=== PATIENT | male | born 1950 | race Caucasian/White ===

== ENCOUNTER 2018-06-29 07:04 | Day surgery (SDC) | payer OTHER ==
[~2018-06-29] VITALS: Ht 172.7 cm; Wt 67.2 kg
[2018-06-29 07:58] VITALS: Ht 172.7 cm; Wt 67.2 kg
[2018-06-29] MEDS ORDERED: HYDR-3027 PO (08:09)
[2018-06-29] MEDS ORDERED: LATA2.5D2 LEFT EYE (08:09)
[2018-06-29] MEDS ORDERED: BACL10TA PO (08:09)
[2018-06-29] MEDS ORDERED: DICL75TA2 PO (08:09)
[2018-06-29] MEDS ORDERED: ALBU2TAB5 PO (08:09)
[2018-06-29] MEDS ORDERED: LEVO25TA50 PO (08:09)
[2018-06-29] MEDS ORDERED: TML25OP5 BOTH EYES (08:09)
[2018-06-29 09:40] VITALS: BP 160/73; PULSE 51; RESP 20
--- NOTE | 2018-06-29 09:40 | HPN ---
Date/Time of Note Date/Time of Note DATE: 06/29/18 TIME: 09:40 Interval H&P Admission Note Pt. seen H&P reviewed: No system changes MINNIE ERICKSON Jun 29, 2018 09:40
[2018-06-29 09:45] VITALS: BP 139/71; PULSE 50; RESP 20
[2018-06-29 09:50] VITALS: BP 109/63; PULSE 52; RESP 20
[2018-06-29] MEDS ORDERED: MIDAZOLAM 1 MG/ML 2 ML INJ ONE ×3 (09:52)
[2018-06-29] MEDS ORDERED: FENTAnyl 50 MCG/ML VIAL ONE ×2 (09:52)
[2018-06-29 09:59] VITALS: BP 140/79; PULSE 55; RESP 20
== END 2018-06-29 13:53 | disposition home or self-care (01) ==
LOC: GIL 07:04
PROVIDERS: ATTEND Internal Medicine Gastroenterology
DX: K57.30 Diverticulosis of large intestine without perforation or abscess without bleeding (principal); Z86.010 Personal history of colon polyps
CPT/HCPCS: 45378; J2250; J3010